=== PATIENT | female | born 1955 ===

== ENCOUNTER 2025-02-06 11:57 | Inpatient (IN) | payer OTHER ==
[~2025-02-06] VITALS: Ht 154.9 cm; Wt 44.5 kg
[2025-02-06 13:14] VITALS: BP 141/83
[2025-02-06 13:32] LABS: PROTHROMBIN TIME 10.9 SECONDS (9.0-11.5)
[2025-02-06 14:16] LABS: RH POSITIVE
[2025-02-13] MEDS ORDERED: POVIDONE-IODINE 118 ML BOTT TOP ONE (07:47)
[2025-02-13] MEDS ORDERED: HEPARIN SODIUM,PORCINE 5,000 UNITS/ML VIAL SUBCUTANEO ONE (08:30)
[2025-02-13] MEDS ORDERED: CEFAZOLIN SODIUM 1,000 MG VIAL IV ONE (08:30)
[2025-02-13] MEDS ORDERED: CEFAZOLIN SODIUM 1,000 MG VIAL ONE (11:55)
[2025-02-13] MEDS ORDERED: SUGAMMADEX SODIUM 200 MG/2 ML VIAL IV ONE (12:02)
[2025-02-13] MEDS ORDERED: KETOROLAC TROMETHAMINE 30 MG VIAL IV SCH (14:14)
[2025-02-13] MEDS ORDERED: RINGERS SOLUTION,LACTATED 1,000 ML IV SCH (14:15)
[2025-02-13] MEDS ORDERED: ACETAMINOPHEN 500 MG GEL..CAP PO SCH (14:15)
[2025-02-13] MEDS ORDERED: GABAPENTIN 300 MG CAPSULE PO SCH (14:16)
[2025-02-13] MEDS ORDERED: MORPHINE SULFATE 4 MG/ML VIAL IV ONE (14:25)
[2025-02-13] MEDS ORDERED: GABAPENTIN 300 MG CAPSULE PO ONE (16:43)
[2025-02-13] MEDS ORDERED: KETOROLAC TROMETHAMINE 30 MG VIAL ONE (16:44)
[2025-02-13 17:53] VITALS: BP 155/78
[2025-02-14 00:12] VITALS: BP 155/71
[2025-02-14 00:47] VITALS: BP 140/85
[2025-02-14 03:23] LABS: HEMATOCRIT 31.3 % (36.0-45.00); HEMOGLOBIN 10.8 g/dL (12.0-15.00); MEAN CELL VOLUME 91.4 fL (80.00-100.00); MEAN CORPUSCULAR HEMOGLOBIN 31.5 pg (27.00-32.0); MEAN CORPUSCULAR HGB CONC 34.5 g/dl (32.0-36.0); PLATELET COUNT 219 K/uL (150-450); RED BLOOD COUNT 3.43 M/uL (4.00-6.00); RED CELL DISTRIBUTION WIDTH 13.9 % (11.5-14.5)
[2025-02-14 05:57] VITALS: BP 101/62
[2025-02-14 08:22] VITALS: BP 108/67; O2SAT 100
[2025-02-14 13:09] VITALS: BP 128/60; O2SAT 99
[2025-02-14 16:00] VITALS: BP 149/80
== END 2025-02-14 15:52 | disposition home or self-care (01) | DRG 743 ==
LOC: OB/GYN 02-13 05:26 → O/R 02-13 05:26 → SURH 02-13 08:30 → OB/GYN 02-13 16:11
PROVIDERS: ADMIT Student in an Organized Health Care Education/Training Program; ATTEND Student in an Organized Health Care Education/Training Program
PROC: 0UT74ZZ Resection of Bilateral Fallopian Tubes, Percutaneous Endoscopic Approach (ICD-10-PCS; 2025-02-13)
PROC: 0UT24ZZ Resection of Bilateral Ovaries, Percutaneous Endoscopic Approach (ICD-10-PCS; 2025-02-13)
PROC: 0TNB4ZZ Release Bladder, Percutaneous Endoscopic Approach (ICD-10-PCS; 2025-02-13)
PROC: 0DNW4ZZ Release Peritoneum, Percutaneous Endoscopic Approach (ICD-10-PCS; 2025-02-13)
PROC: 0UN94ZZ Release Uterus, Percutaneous Endoscopic Approach (ICD-10-PCS; 2025-02-13)
PROC: 0JD80ZZ Extraction of Abdomen Subcutaneous Tissue and Fascia, Open Approach (ICD-10-PCS; 2025-02-13)
PROC: 8E0W4CZ Robotic Assisted Procedure of Trunk Region, Percutaneous Endoscopic Approach (ICD-10-PCS; 2025-02-13)
PROC: 0UT94ZZ Resection of Uterus, Percutaneous Endoscopic Approach (ICD-10-PCS; principal; 2025-02-13 08:30)
DX: D25.1 Intramural leiomyoma of uterus (principal); D27.0 Benign neoplasm of right ovary; N73.6 Female pelvic peritoneal adhesions (postinfective)
CPT/HCPCS: 58573; 58661; 44180; 52000; S2900